=== PATIENT | female | born 1995 | race African-American/Black ===

== ENCOUNTER 2017-01-26 16:24 | Observation (INO) | payer OTHER ==
[2016-05-19 12:49] VITALS: BP 118/63
[2017-01-26] MEDS ORDERED: IV RINGERS,LACTATED 1000ML 1,000 ML IV SCH (17:03)
[2017-01-26 17:24] LABS: BILIRUBIN,URINE NEGATIVE (NEG); GLUCOSE,URINE NEGATIVE (NEG); NITRITE,URINE NEGATIVE (NEG); PROTEIN,URINE NEGATIVE (NEG-TRACE)
[2017-01-26 17:34] LABS: BACTERIA,URINE MODERATE /HPF (0-FEW); RBC,URINE 0 /HPF (0-2); SQUAMOUS EPITHELIAL CELL,UR MOD /LPF; TRICHOMONAS,URINE PRESENT
== END 2017-01-26 18:35 | disposition home or self-care (01) ==
LOC: 3 SO LND 16:24
PROVIDERS: ADMIT Obstetrics & Gynecology; ATTEND Obstetrics & Gynecology
DX: O26.893 Other specified pregnancy related conditions, third trimester (principal); R10.30 Lower abdominal pain, unspecified; M54.9 Dorsalgia, unspecified; Z3A.33 33 weeks gestation of pregnancy
CPT/HCPCS: 81001; 87086; G0378; G0379

== ENCOUNTER 2017-08-23 08:39 | Emergency (ER) | payer OTHER ==
[2017-08-23 08:58] LABS: URINE HCG POC HCG NEGATIVE (Negative)
[2017-08-23] MEDS: ONDANSETRON ODT 4 MG TAB.RAPDIS. PO (09:11)
== END 2017-08-23 09:18 | disposition home or self-care (01) ==
LOC: ER 09:18
DX: R11.2 Nausea with vomiting, unspecified (principal); R05 Cough; F12.10 Cannabis abuse, uncomplicated
CPT/HCPCS: 81025; 99282; Q0162

== ENCOUNTER 2018-02-01 16:57 | Emergency (ER) | payer OTHER ==
[~2018-02-01] VITALS: Ht 152.4 cm; Wt 93.0 kg
[2018-02-01 18:06] VITALS: BP 134/63
--- NOTE | 2018-02-01 18:15 | PHYS DOC ---
Past Medical History Past Medical History: No Pertinent History Past Surgical History: Alcohol Use: None Drug Use: Marijuana Adult General Chief Complaint Chief Complaint: ABDOMINAL PAIN HPI HPI Patient is a 22 year old female who presents by private vehicle with complaints of intermittent pelvic pain that is started today. She reports that the pain is sharp in nature and comes and goes. She denies any urinary symptoms , abnormal discharge, fever, constipation, diarrhea. LMP 01/24/2018. Review of Systems Review of Systems Constitutional: Denies fever or chills [] Eyes: Denies change in visual acuity, redness, or eye pain [] HENT: Denies nasal congestion or sore throat [] Respiratory: Denies cough or shortness of breath [] Cardiovascular: No additional information not addressed in HPI [] GI: Denies abdominal pain, nausea, vomiting, bloody stools or diarrhea [] : Denies dysuria or hematuria [] Musculoskeletal: Denies back pain or joint pain [] Integument: Denies rash or skin lesions [] Neurologic: Denies headache, focal weakness or sensory changes [] Endocrine: Denies polyuria or polydipsia [] All other systems were reviewed and found to be within normal limits, except as documented in this note. Allergies Allergies Allergies Coded Allergies Type Severity Reaction Last Updated Verified No Known Drug Allergies 07/04/15 No Physical Exam Physical Exam Constitutional: Well developed, well nourished, no acute distress, non-toxic appearance. [] HENT: Normocephalic, atraumatic, bilateral external ears normal, oropharynx moist, no oral exudates, nose normal. [] Eyes: PERRLA, EOMI, conjunctiva normal, no discharge. [] Neck: Normal range of motion, no tenderness, supple, no stridor. [] Cardiovascular:Heart rate regular rhythm, no murmur [] Lungs & Thorax: Bilateral breath sounds clear to auscultation [] Abdomen: Bowel sounds normal, soft, no tenderness, no masses, no pulsatile masses. [] Skin: Warm, dry, no erythema, no rash. [] Back: No tenderness, no CVA tenderness. [] Extremities: No tenderness, no cyanosis, no clubbing, ROM intact, no edema. [] Neurologic: Alert and oriented X 3, normal motor function, normal sensory function, no focal deficits noted. [] Psychologic: Affect normal, judgement normal, mood normal. [] Current Patient Data Vital Signs Vital Signs Date Time Temp Pulse Resp B/P (MAP) Pulse Ox O2 Delivery O2 Flow Rate FiO2 02/01/18 18:06 98.3 95 18 134/63 (86) 98 Room Air 98.3 Lab Values Laboratory Tests Test 02/01/18 17:55 02/01/18 18:10 POC Urine HCG, Qualitative Hcg negative (Negative) Urine Collection Type Unknown Urine Color Yellow Urine Clarity Clear Urine pH 6.0 Urine Specific [place] 1.020 Urine Protein Negative mg/dL (NEG-TRACE) Urine Glucose (UA) Negative mg/dL (NEG) Urine Ketones (Stick) Negative mg/dL (NEG) Urine Blood Negative (NEG) Urine Nitrite Negative (NEG) Urine Bilirubin Negative (NEG) Urine Urobilinogen Dipstick 0.2 mg/dL (0.2 mg/dL) Urine Leukocyte Esterase Negative (NEG) Urine RBC 0 /HPF (0-2) Urine WBC 1-4 /HPF (0-4) Urine Squamous Epithelial Cells Few /LPF Urine Bacteria 0 /HPF (0-FEW) Urine Mucus Mod /LPF Microbiology 02/01/18 Wet Prep - Final, Complete EKG EKG [] Radiology/Procedures Radiology/Procedures [] Course & Med Decision Making Course & Med Decision Making Pertinent Labs and Imaging studies reviewed. (See chart for details) [] Dragon Disclaimer Dragon Disclaimer This electronic medical record was generated, in whole or in part, using a voice recognition dictation system. Departure Departure Impression: Primary Impression: Bacterial vaginosis Disposition: HOME, SELF-CARE Condition: STABLE Referrals: SPARKLE WOO MD (PCP) Patient Instructions: Bacterial Vaginosis, [id number] Additional Instructions: Take all medication as directed. NO alcohol while taking this medication for 48 hours after completion of medication. Follow-up with primary doctor in 1-2 days. Return immediately with any problems or concerns. Scripts Metronidazole (FLAGYL) 500 Mg Tablet 1 TAB PO BID, #14 TAB Prov: NATALIE MORALES APRN 02/01/18 NATALIE MORALES APRN Feb 01, 2018 18:15
[2018-02-01 18:24] LABS: BILIRUBIN,URINE NEGATIVE (NEG); CLARITY,URINE CLEAR; COLOR,URINE YELLOW; NITRITE,URINE NEGATIVE (NEG); PROTEIN,URINE NEGATIVE (NEG-TRACE); UROBILINOGEN,URINE 0.2 mg/dL (0.2 mg/dL)
[2018-02-01 18:47] LABS: BACTERIA,URINE 0 /HPF (0-FEW); RBC,URINE 0 /HPF (0-2); SQUAMOUS EPITHELIAL CELL,UR FEW /LPF
[2018-02-01] MEDS ORDERED: METR500T PO (20:07)
[2018-02-01] MEDS ORDERED: cefTRIAXone IM 250 MG VIAL IM ONE (20:15)
[2018-02-01] MEDS ORDERED: AZITHROMYCIN 250 MG TABLET. PO ONE (20:15)
[2018-02-03 15:37] LABS: GC PROBE Negative (Negative)
== END 2018-02-01 20:28 | disposition home or self-care (01) ==
LOC: ER 16:57
DX: N76.0 Acute vaginitis (principal); B96.89 Other specified bacterial agents as the cause of diseases classified elsewhere; Z98.890 Other specified postprocedural states
CPT/HCPCS: 81001; 81025; 87491; 87591; 96372; 99284; J0696; Q0111; Q0144

== ENCOUNTER 2018-04-18 10:12 | Emergency (ER) | payer OTHER ==
[~2018-04-18] VITALS: Ht 152.4 cm; Wt 86.2 kg
[~2018-04-18 10:12] MED LIST: METR500T PO
[2018-04-18] MEDS ORDERED: cefTRIAXone IM 250 MG VIAL IM ONE (10:30)
[2018-04-18] MEDS ORDERED: AZITHROMYCIN 250 MG TABLET. PO ONE (10:30)
[2018-04-18 10:37] VITALS: BP 118/56
[2018-04-18 10:44] LABS: BILIRUBIN,URINE NEGATIVE (NEG); CLARITY,URINE CLEAR; COLOR,URINE YELLOW; NITRITE,URINE NEGATIVE (NEG); PROTEIN,URINE NEGATIVE (NEG-TRACE); UROBILINOGEN,URINE 0.2 mg/dL (0.2 mg/dL)
[2018-04-18 10:54] LABS: BACTERIA,URINE 0 /HPF (0-FEW); RBC,URINE RARE /HPF (0-2); SQUAMOUS EPITHELIAL CELL,UR FEW /LPF; WBC,URINE RARE /HPF (0-4)
--- NOTE | 2018-04-18 10:55 | PHYS DOC ---
Past Medical History Past Medical History: No Pertinent History Past Surgical History: Alcohol Use: None Drug Use: Marijuana Adult General Chief Complaint Chief Complaint: SEXUALLY TRANSMITTED DISEASE HPI HPI Patient is a 22 year old female who presents with states she was be checked for STDs. Patient states she has 2 small bumps that are painful on her vagina that she saw about 2 days ago. She denies any vaginal discharge or bleeding. She would like to be treated prophylactically for any STDs. Her only past medical history is a . Patient has no known drug allergies. Review of Systems Review of Systems Constitutional: Denies fever or chills [] Eyes: Denies change in visual acuity, redness, or eye pain [] HENT: Denies nasal congestion or sore throat [] Respiratory: Denies cough or shortness of breath [] Cardiovascular: No additional information not addressed in HPI [] GI: Denies abdominal pain, nausea, vomiting, bloody stools or diarrhea [] : Denies dysuria or hematuria [] Musculoskeletal: Denies back pain or joint pain [] Integument: 2 painful ingrown hairs to vagina. Denies rash or skin lesions [] Neurologic: Denies headache, focal weakness or sensory changes [] Endocrine: Denies polyuria or polydipsia [] All other systems were reviewed and found to be within normal limits, except as documented in this note. Current Medications Current Medications Current Medications Medications (Trade) Dose Ordered Sig/Rosie Start Time Stop Time Status Last Admin Dose Admin Azithromycin (Zithromax) 1,000 mg 1X ONCE 04/18/18 10:30 04/18/18 10:31 DC 04/18/18 10:58 1,000 MG Ceftriaxone Sodium (Rocephin Im) 250 mg 1X ONCE 04/18/18 10:30 04/18/18 10:31 DC 04/18/18 10:59 250 MG Allergies Allergies Allergies Coded Allergies Type Severity Reaction Last Updated Verified No Known Drug Allergies 07/04/15 No Physical Exam Physical Exam Constitutional: Well developed, well nourished, no acute distress, non-toxic appearance. [] HENT: Normocephalic, atraumatic, bilateral external ears normal, oropharynx moist, no oral exudates, nose normal. [] Eyes: PERRLA, EOMI, conjunctiva normal, no discharge. [] Neck: Normal range of motion, no tenderness, supple, no stridor. [] Cardiovascular:Heart rate regular rhythm, no murmur [] Lungs & Thorax: Bilateral breath sounds clear to auscultation [] Abdomen: Bowel sounds normal, soft, no tenderness, no masses, no pulsatile masses. [] Skin: Two nondraining reddened ingrown hairs to the vagina. Warm, dry, no erythema, no rash. [] Back: No tenderness, no CVA tenderness. [] Extremities: No tenderness, no cyanosis, no clubbing, ROM intact, no edema. [] Neurologic: Alert and oriented X 3, normal motor function, normal sensory function, no focal deficits noted. [] Psychologic: Affect normal, judgement normal, mood normal. [] Current Patient Data Vital Signs Vital Signs Date Time Temp Pulse Resp B/P (MAP) Pulse Ox O2 Delivery O2 Flow Rate FiO2 04/18/18 10:37 98.2 85 16 118/56 (76) 100 Room Air 98.2 Lab Values Laboratory Tests Test 04/18/18 10:25 04/18/18 10:30 Urine Collection Type Unknown Urine Color Yellow Urine Clarity Clear Urine pH 7.0 Urine Specific [place] 1.015 Urine Protein Negative mg/dL (NEG-TRACE) Urine Glucose (UA) Negative mg/dL (NEG) Urine Ketones (Stick) Negative mg/dL (NEG) Urine Blood Negative (NEG) Urine Nitrite Negative (NEG) Urine Bilirubin Negative (NEG) Urine Urobilinogen Dipstick 0.2 mg/dL (0.2 mg/dL) Urine Leukocyte Esterase Trace (NEG) Urine RBC Rare /HPF (0-2) Urine WBC Rare /HPF (0-4) Urine Squamous Epithelial Cells Few /LPF Urine Bacteria 0 /HPF (0-FEW) POC Urine HCG, Qualitative Hcg negative (Negative) Microbiology 04/18/18 Wet Prep - Final, Complete EKG EKG [] Radiology/Procedures Radiology/Procedures [] Course & Med Decision Making Course & Med Decision Making Patient is a 22 year old female who presents with states she was be checked for STDs. Patient states she has 2 small bumps that are painful on her vagina that she saw about 2 days ago. She denies any vaginal discharge or bleeding. She would like to be treated prophylactically for any STDs. Her only past medical history is a . Patient has no known drug allergies. Alert and oriented. Abdomen is soft and nontender. Patient denies any nausea, abdominal pain, ring, diarrhea, vaginal discharge, vaginal bleeding. Denies any fevers. Pelvic exam was done and STD cultures and wet mount are sent to lab. Patient is treated prophylactically with azithromycin and Rocephin in the ED. She is told that if her results come back positive we'll call here in 48 hours. Urine shows no infection. Wet mount shows no acute findings. Patient is sent home with Keflex for her to small reddened painful ingrown hairs on the top of the vagina and on the bottom of the right labia. Pelvic Exam: Finish Production Manager present Abdomen: Nontender External Genitalia: Normal Skin Speculum: Normal vaginal mucosa, white cervical discharge Bimanual: No adnexal masses or tenderness, No CMT Dragon Disclaimer Dragon Disclaimer This electronic medical record was generated, in whole or in part, using a voice recognition dictation system. Departure Departure Impression: Primary Impression: Sexually transmitted disease Additional Impression: Ingrown hair Disposition: 01 HOME, SELF-CARE Condition: STABLE Referrals: SPARKLE WOO MD (PCP) Patient Instructions: Ingrown Hair, Sexually Transmitted Disease Additional Instructions: Follow-up with her primary care if needed. Tell any partners if you come back positive with STDs, that they need to get treated. Scripts Cephalexin (KEFLEX) 500 Mg Capsule 1 CAP PO BID, #10 CAP Prov: ZEYAD LIU APRN 04/18/18 Problem Qualifiers ZEYAD LIU APRN Apr 18, 2018 10:55
[2018-04-18] MEDS ORDERED: CEPH-264 PO (11:26)
[2018-04-20 13:17] LABS: GC PROBE Positive (Negative)
== END 2018-04-18 11:37 | disposition home or self-care (01) ==
LOC: ER 10:12
DX: A64 Unspecified sexually transmitted disease (principal); L73.1 Pseudofolliculitis barbae
CPT/HCPCS: 81001; 81025; 87491; 87591; 96372; 99283; J0696; Q0111; Q0144

== ENCOUNTER 2018-10-31 17:35 | Emergency (ER) | payer OTHER ==
[~2018-10-31] VITALS: Ht 152.4 cm; Wt 86.2 kg
[~2018-10-31 17:35] MED LIST changes: +CEPH-264 PO
[2018-10-31 18:25] VITALS: BP 142/70
--- NOTE | 2018-10-31 19:51 | PHYS DOC ---
Past Medical History Past Medical History: No Pertinent History (RONAN WHITMORE APRN) Past Surgical History: (RONAN WHITMORE APRN) Alcohol Use: None Drug Use: Marijuana (RONAN WHITMORE APRN) Adult General Chief Complaint Chief Complaint: VAGINAL BLEEDING HPI HPI Patient is a 23 year old AA female who presents to the ER with complaints of vaginal bleeding since 1800 last night and pelvic cramps during . Pt states her LMP was at the end of August and that she is almost 6 weeks of gestation. She has an appointment with her OB next week on the . She reports that the bleeding has been intermittent, is light so far and is only present with wiping. She denies any dysuria or CVA tenderness. She is 2, para 1. She reports low back pain, she was given a EDC of 06/19/19. She currently rates her pain a 6/10 and describes it as cramping. (RONAN WHITMORE APRN) Review of Systems Review of Systems Constitutional: Denies fever or chills [] \HENT: Denies nasal congestion or sore throat [] Respiratory: Denies cough or shortness of breath [] Cardiovascular: No additional information not addressed in HPI [] GI: Denies nausea, or vomiting; see HPI : Denies dysuria; see HPI Musculoskeletal: See HPI Integument: Denies rash or skin lesions [] Neurologic: Denies headache Complete systems were reviewed and found to be within normal limits, except as documented in this note. (RONAN WHITMORE APRN) Allergies Allergies Allergies Coded Allergies Type Severity Reaction Last Updated Verified No Known Drug Allergies 07/04/15 No (VIPIN JASSO DO) Physical Exam Physical Exam Constitutional: Well developed, well nourished, no acute distress, non-toxic appearance, obese. [] HENT: Normocephalic, atraumatic, bilateral external ears normal, nose normal. [] Eyes: PERRLA, EOMI, conjunctiva normal, no discharge. [] Neck: Normal range of motion, no tenderness, supple, no stridor. [] Cardiovascular:Heart rate regular rhythm Lungs & Thorax: Bilateral breath sounds clear to auscultation [] Pelvic Exam: Tax Expert present Angie RN Abdomen: Nontender, soft External Genitalia: Normal Skin Speculum: Normal vaginal mucosa, bloody cervical discharge Bimanual: declined by patient Skin: Warm, dry, no erythema, no rash. [] Back: No tenderness, no CVA tenderness. [] Extremities: No cyanosis, ROM intact, no edema. [] Neurologic: Alert and oriented X 3, no focal deficits noted. [] Psychologic: Affect normal, judgement normal, mood normal. [] (RONAN HWITMORE APRN) Physical Exam Constitutional: Well developed, well nourished, no acute distress, anxious and irritated HENT: Normocephalic, atraumatic Eyes: Conjunctiva normal, no discharge Neck: Normal range of motion, supple Lungs & Thorax: No respiratory distress Neurologic: Alert and oriented, speech normal, no focal deficits noted Psychologic: Affect irritable, judgement normal (VIPIN JASSO DO) Current Patient Data Vital Signs Vital Signs Date Time Temp Pulse Resp B/P (MAP) Pulse Ox O2 Delivery O2 Flow Rate FiO2 10/31/18 18:25 99.7 81 20 142/70 (94) 99 Room Air 99.7 (VIPIN JASSO DO) Lab Values Laboratory Tests Test 10/31/18 18:30 10/31/18 18:38 10/31/18 20:10 Urine Collection Type Unknown Urine Color Yellow Urine Clarity Clear Urine pH 6.5 Urine Specific [place] 1.020 Urine Protein Negative mg/dL (NEG-TRACE) Urine Glucose (UA) Negative mg/dL (NEG) Urine Ketones (Stick) Negative mg/dL (NEG) Urine Blood Large (NEG) Urine Nitrite Negative (NEG) Urine Bilirubin Negative (NEG) Urine Urobilinogen Dipstick 1.0 mg/dL (0.2 mg/dL) Urine Leukocyte Esterase Small (NEG) Urine RBC >40 /HPF (0-2) Urine WBC 5-10 /HPF (0-4) Urine Squamous Epithelial Cells Few /LPF Urine Bacteria Few /HPF (0-FEW) POC Urine HCG, Qualitative Hcg positive (Negative) Maternal Serum HCG Beta Subunit 8567 mIU/mL (0-5) H (VIPIN JASSO DO) EKG EKG [] (RONAN WHITMORE APRN) Radiology/Procedures Radiology/Procedures 1941-pelvic exam, unable to visualize cervix due to blood in vaginal vault, pt not tolerating pelvic exam due to pain, bimanual exam declined. [] PROCEDURE: OB <14 WKS W/TV EXAM: OBSTETRIC ULTRASOUND <14 WEEKS. HISTORY: Vaginal bleeding and cramping in early . FINDINGS: Sonographic evaluation of the pelvis was performed transabdominally and transvaginally. The uterus is anteverted and measures 9.3 x 4.9 x 4.8 cm. No intrauterine gestation is identified. The endometrial stripe measures 9 mm along the fundus, but 12 mm along the proximal cervix/lower uterine segment. This portion contains some heterogeneous soft tissue echogenicity with some questionable internal perfusion. There is no clear endometrial fluid. The right ovary measures 2.8 x 2.3 x 1.8 cm. The left ovary measures 4.1 x 3.8 x 3.4 cm. It contains a simple appearing dominant follicle or small cyst that measures 3.5 x 2.8 cm. There are no suspicious lesions. There is normal flow bilaterally. There is no adnexal mass suggestive of ectopic gestation. There is no significant free fluid. IMPRESSION: 1. No viable intrauterine gestation is identified. Some heterogeneous soft tissue within the lower uterine segment or proximal cervix may represent products of conception undergoing expulsion. Correlate with quantitative beta hCG to further confirm this. Follow-up to quantitative beta hCG zero is recommended. (RONAN WHITMORE APRN) Course & Med Decision Making Course & Med Decision Making Pertinent Labs and Imaging studies reviewed. (See chart for details) dx: Complete Miscarriage Pt is Rh positive. Hcg level 8567. UA unremarkable. US IMPRESSION: 1. No viable intrauterine gestation is identified. Some heterogeneous soft tissue within the lower uterine segment or proximal cervix may represent products of conception undergoing expulsion. Correlate with quantitative beta hCG to further confirm this. Follow-up to quantitative beta hCG zero is recommended. Pt instructed to follow up with OBGyn on 11/03 as scheduled. Return to ER if sx worsen. Patient verbalized an understanding of home care, medications, follow-up, and return to ED instructions and was in agreement with the plan of care. [] (RONAN WHITMORE APRN) Dragon Disclaimer Dragon Disclaimer This electronic medical record was generated, in whole or in part, using a voice recognition dictation system. (RONAN WHITMORE APRN) Departure Departure Impression: Primary Impression: Complete miscarriage Disposition: HOME, SELF-CARE Condition: STABLE Referrals: UNKNOWN PCP NAME (PCP) Patient Instructions: Miscarriage, [id number] Additional Instructions: Your HCG level today was 8567. Take tylenol as needed for pain. Follow up with your OBGyn on the as scheduled, return to the ER if your symptoms worsen. Attending Signature Attending Signature I have personally interviewed and examined the patient. All charts, labs, and imaging studies were reviewed. I agree with the PA/SUMMER SESSIONS DIRECTOR's findings, exam, and plan. (VIPIN JASSO DO) RONAN WHITMORE APRN Oct 31, 2018 19:50 VIPIN JASSO DO Nov 01, 2018 04:52
[2018-10-31 20:40] LABS: BILIRUBIN,URINE NEGATIVE (NEG); CLARITY,URINE CLEAR; COLOR,URINE YELLOW; NITRITE,URINE NEGATIVE (NEG); PH,URINE 6.5; PROTEIN,URINE NEGATIVE (NEG-TRACE)
[2018-10-31 20:56] LABS: BACTERIA,URINE FEW /HPF (0-FEW); RBC,URINE >40 /HPF (0-2); SQUAMOUS EPITHELIAL CELL,UR FEW /LPF
--- NOTE | 2018-10-31 21:33 | RAD ---
EXAM: OBSTETRIC ULTRASOUND <14 WEEKS. HISTORY: Vaginal bleeding and cramping in early . FINDINGS: Sonographic evaluation of the pelvis was performed transabdominally and transvaginally. The uterus is anteverted and measures 9.3 x 4.9 x 4.8 cm. No intrauterine gestation is identified. The endometrial stripe measures 9 mm along the fundus, but 12 mm along the proximal cervix/lower uterine segment. This portion contains some heterogeneous soft tissue echogenicity with some questionable internal perfusion. There is no clear endometrial fluid. The right ovary measures 2.8 x 2.3 x 1.8 cm. The left ovary measures 4.1 x 3.8 x 3.4 cm. It contains a simple appearing dominant follicle or small cyst that measures 3.5 x 2.8 cm. There are no suspicious lesions. There is normal flow bilaterally. There is no adnexal mass suggestive of ectopic gestation. There is no significant free fluid. IMPRESSION: 1. No viable intrauterine gestation is identified. Some heterogeneous soft tissue within the lower uterine segment or proximal cervix may represent products of conception undergoing expulsion. Correlate with quantitative beta hCG to further confirm this. Follow-up to quantitative beta hCG zero is recommended. Electronically signed by: Crystal Brothers MD (10/31/2018 9:31 PM) [facility]
--- NOTE | 2018-11-03 21:06 | PATHOLOGY ---
[facility] Accession Number: [id number] . 01 Material submitted: . product of conception - TISSUE EXPELLED FROM CERVIX . 01 Clinical history: . LMP Ended August . 02 Diagnosis: "Tissue expelled from cervix": - Decidualized secretory endometrium with focal acute inflammation and degenerative changes. - No chorionic villi seen. . (SKM:mml; 11/03/2018) QL/11/03/2018 . 02 Electronically signed: . Luis Jacinto MD, Pathologist NPI- [id number] . 01 Gross description: . The specimen is received in formalin, labeled "Leslie Brown, tissue expelled from cervix", is a disrupted gordon-white, rubbery sac measuring 4.5 x 1.5 x 0.5 cm. Sectioning shows the sac, partially filled with dark brown hemorrhagic material and no discrete spongy placental tissue, parts or grapelike cystic structures. The specimen is entirely submitted in A1-A3. ([facility]; 11/02/2018) [facility] . 02 Pathologist provided ICD-10: N93.9 . 02 CPT . 402381 Specimen Comment: A courtesy copy of this report has been sent to Specimen Comment: [phone]. Specimen Comment: Report sent to Performed at: 01 [facility] [address], [place] [id number] MD Kartik Painting MD Phone: [phone] Performed at: 02 [facility] [address] [place], [place] [id number] MD Andrey Calle MD Phone: [phone]
== END 2018-10-31 21:32 | disposition home or self-care (01) ==
LOC: ER 17:35
DX: O03.9 Complete or unspecified spontaneous abortion without complication (principal); Z3A.01 Less than 8 weeks gestation of pregnancy
CPT/HCPCS: 36415; 76801; 76817; 81001; 81025; 84702; 86900; 86901; 87086; 99285-25

== ENCOUNTER 2019-05-08 11:56 | Emergency (ER) | payer OTHER ==
[~2019-05-08] VITALS: Ht 152.4 cm; Wt 87.7 kg
[2019-05-08 11:58] VITALS: BP 146/79
[2019-05-08] MEDS ORDERED: ONDA4TAB7 PO (13:26)
--- NOTE | 2019-05-08 13:27 | PHYS DOC ---
Past Medical History Past Medical History: No Pertinent History Past Surgical History: Alcohol Use: None Drug Use: Marijuana Adult General Chief Complaint Chief Complaint: nausea and vomiting and diarrhea HPI HPI Patient is a 23 year old male patient without medical problem complaining of nausea and vomiting and diarrhea. Patient states since yesterday she had 4 episodes of vomiting and was not able to eat and drink anything. Patient states this morning and appointment was able to tolerate Lyn salad. Patient denies sick contacts and states she feels better right now. Review of Systems Review of Systems Constitutional: Denies fever or chills [] Eyes: Denies change in visual acuity, redness, or eye pain [] HENT: Denies nasal congestion or sore throat [] Respiratory: Denies cough or shortness of breath [] Cardiovascular: No additional information not addressed in HPI [] GI: Denies abdominal pain, reports nausea, vomiting, diarrhea [] : Denies dysuria or hematuria [] Musculoskeletal: Denies back pain or joint pain [] Integument: Denies rash or skin lesions [] Neurologic: Denies headache, focal weakness or sensory changes [] Endocrine: Denies polyuria or polydipsia [] All other systems were reviewed and found to be within normal limits, except as documented in this note. Allergies Allergies Allergies Coded Allergies Type Severity Reaction Last Updated Verified No Known Drug Allergies 07/04/15 No Physical Exam Physical Exam Constitutional: Well developed, well nourished, no acute distress, non-toxic appearance. [] HENT: Normocephalic, atraumatic, oropharynx moist. Eyes: PERRLA, EOMI, conjunctiva normal, no discharge. [] Neck: Normal range of motion, no tenderness, supple, no stridor. [] Cardiovascular:Heart rate regular rhythm, no murmur [] Lungs & Thorax: Bilateral breath sounds clear to auscultation [] Abdomen: Bowel sounds normal, soft, no tenderness, no masses, no pulsatile masses. [] Skin: Warm, dry, no erythema, no rash. [] Back: No tenderness, no CVA tenderness. [] Extremities: No tenderness, no cyanosis, no clubbing, ROM intact, no edema. [] Neurologic: Alert and oriented X 3, normal motor function, normal sensory function, no focal deficits noted. [] Psychologic: Affect normal, judgement normal, mood normal. [] Current Patient Data Vital Signs Vital Signs Date Time Temp Pulse Resp B/P (MAP) Pulse Ox O2 Delivery O2 Flow Rate FiO2 05/08/19 11:58 98.3 89 17 146/79 (101) 98 Room Air 98.3 EKG EKG [] Radiology/Procedures Radiology/Procedures [] Course & Med Decision Making Course & Med Decision Making Evaluation of patient in ER showed 32-year-old male patient brought her to others with flulike symptom and ORIENTED stated because and diarrhea since yesterday. Patient had unremarkable physical exam.discharge: I've spoken with the patient and/or caregivers. I've explained the patient's condition, diagnosis and treatment plan based on information available to me at this time. I've answered the patient's and/or caregivers questions and addressed any concerns. The patient and/or caregivers have a good understanding the patient's diagnosis, condition and treatment plan as can be expected at this point. Vital signs have been stabilized. The patient's condition is stable for d ischarge from the emergency department. The patient will pursue further outpatient evaluation with her primary care provider or other designated consulting physician as outlined in the discharge instructions. Patient and/or caregivers are agreeable to this plan of care and follow-up instructions have been explained in detail. The patient and/or caregivers have received these instructions in written format and expressed understanding of these discharge instructions. The patient and her caregivers are aware that if any significant change in condition or worsening of symptoms should prompt him to immediately return to this of the closest emergency department. If an emergent department is not readily available I would encourage him to call 911. Damon Disclaimer Brigidaon Disclaimer This electronic medical record was generated, in whole or in part, using a voice recognition dictation system. Departure Departure Impression: Primary Impression: Viral gastroenteritis Disposition: HOME, SELF-CARE (1325) Condition: STABLE Referrals: UNKNOWN PCP NAME (PCP) Patient Instructions: Viral Gastroenteritis Additional Instructions: Drink plenty of liquids Follow-up with your primary care physician in 3-5 days Return to ER if not getting better Thank you for visiting [facility]. We appreciate you trusting us with your care. If any additional problems come up don't hesitate to return to visit us. Please follow up with your primary care provider so they can plan additional care if needed and know about the problem that you had. If symptoms worsen come back to the Emergency Department. Any concerning symptoms that start such as chest pain, shortness of air, weakness or numbness on one side of the body, running high fevers or any other concerning symptoms return to the ER. Scripts Ondansetron Hcl (ZOFRAN) 4 Mg Tablet 1 TAB PO PRN Q6-8HRS for nausea, #12 TAB Prov: EWS IRWIN MD 05/08/19 WES IRWIN MD May 08, 2019 13:27
== END 2019-05-08 13:48 | disposition home or self-care (01) ==
LOC: ER 11:56
DX: A08.4 Viral intestinal infection, unspecified (principal)
CPT/HCPCS: 99283

== ENCOUNTER 2020-03-26 20:54 | Emergency (ER) | payer OTHER ==
[~2020-03-26] VITALS: Ht 152.4 cm; Wt 90.9 kg
[~2020-03-26 20:54] MED LIST changes: +ONDA4TAB7 PO
[2020-03-26 21:06] VITALS: BP 143/74
--- NOTE | 2020-03-26 21:08 | PHYS DOC ---
Past Medical History Past Medical History: No Pertinent History (COBY CAMPOS APRN) Past Surgical History: (COBY CAMPOS APRN) Smoking Status: Never Smoker Alcohol Use: None Drug Use: Marijuana (COBY CAMPOS APRN) General Adult EDM: Chief Complaint: TEST HPI: HPI: Patient is a 24 year old female who presents to the ED today complaining of nausea and vomiting today and requesting a test. She states she did a home test which was positive. Her last menstrual cycle was February 20, 2020. She is a 3 para 1 with 1 miscarriage. Denies any abdominal pain. Denies any vaginal bleeding. (COBY CAMPOS APRN) Review of Systems: Review of Systems: Constitutional: Denies fever or chills. [] GI: Request for test. Reports nausea and vomiting. Denies abdominal pain, bloody stools or diarrhea. [] : Denies dysuria. [] Musculoskeletal: Denies back pain or joint pain. [] Integument: Denies rash. [] Neurologic: Denies headache, focal weakness or sensory changes. [] Psychiatric: Denies depression or anxiety. [] (COBY CAMPOS APRN) Heart Score: Risk Factors: Risk Factors: DM, Current or recent (<one month) smoker, HTN, HLP, family history of CAD, obesity. Risk Scores: Score 0 - 3: 2.5% MACE over next 6 weeks - Discharge Home Score 4 - 6: 20.3% MACE over next 6 weeks - Admit for Clinical Observation Score 7 - 10: 72.7% MACE over next 6 weeks - Early Invasive Strategies (COBY CAMPOS APRN) Allergies: Allergies: Allergies Coded Allergies Type Severity Reaction Last Updated Verified No Known Drug Allergies 07/04/15 No (COBY CAMPOS APRN) Physical Exam: PE: Constitutional: Well developed, well nourished, no acute distress, non-toxic appearance. [] Abdomen: Bowel sounds normal, soft, no tenderness, no masses, no pulsatile masses. [] Skin: Warm, dry, no erythema, no rash. [] Back: No tenderness, no CVA tenderness. [] Extremities: No tenderness, no cyanosis, no clubbing, ROM intact, no edema. [] Neurologic: Alert and oriented X 3, normal motor function, normal sensory function, no focal deficits noted. [] Psychologic: Affect normal, judgement normal, mood normal. [] (COBY CAMPOS APRN) Current Patient Data: Labs: Laboratory Tests Test 03/26/20 21:02 POC Urine HCG, Qualitative Hcg positive (Negative) (COBY CAMPOS APRN) EKG: EKG: [] (COBY CAMPOS APRN) Radiology/Procedures: Radiology/Procedures: [] (COBY CAMPOS APRN) Course & Med Decision Making: Course & Med Decision Making Pertinent Labs and Imaging studies reviewed. (See chart for details) This is a 24-year-old female patient presenting to the ED today requesting a test. Her last menstrual cycle was February 20, 2020. She is a 3 para 1 with 1 miscarriage. Has had nausea and vomiting all day today. She is in no distress currently talking on the phone. She did a home test which was positive. She would like confirmation of her . Positive urine hCG. Discharged home with Compazine and provided instructions to follow- up with an SECURITY AUDITOR. vitamins recommended. (COBY CAMPOS APRN) Course & Med Decision Making I have reviewed the PA/DOG TRACK KENNEL MANAGER's note and Plan of Care. I was available for consultation as needed during the patient's visit in the emergency department. I agree with the clinical impression, plans and disposition. (BECKY SARGENT MD) Dragon Disclaimer: Dragon Disclaimer: This electronic medical record was generated, in whole or in part, using a voice recognition dictation system. (COBY CAMPOS APRN) Departure Departure Impression: Primary Impression: Nausea and vomiting during Additional Impression: Qualified Codes: Z3A.01 - Less than 8 weeks gestation of Disposition: DC HOME SELF CARE/HOMELESS Condition: STABLE Referrals: UNKNOWN PCP NAME (PCP) VIPIN MARTINEZ MD follow up in 1 week Patient Instructions: ABCs of , Diet - Hyperemesis Gravidarum, Hyperemesis Gravidarum Additional Instructions: Congratulations you are . Please establish care with an SECURITY AUDITOR. Start taking vitamins. Take nausea medicine as needed. Come back to the ED at any point you have concerning symptoms Scripts Prochlorperazine Maleate (Compazine) 10 Mg Tablet 1 TAB PO Q6HRS, #30 TAB 0 Refills Prov: MUTUNGA,COBY SKEIN YARN DRIER 03/26/20 COBY CAMPOS APRN Mar 26, 2020 21:08 BECKY SARGENT MD Mar 27, 2020 01:22
[2020-03-26] MEDS ORDERED: PROC10TA57 PO (21:40)
== END 2020-03-26 21:58 | disposition home or self-care (01) ==
LOC: ER 20:54
DX: O21.9 Vomiting of pregnancy, unspecified (principal); Z3A.01 Less than 8 weeks gestation of pregnancy
CPT/HCPCS: 81025; 99282

== ENCOUNTER 2020-04-10 10:11 | Emergency (ER) | payer OTHER ==
[~2020-04-10] VITALS: Ht 152.4 cm; Wt 45.0 kg
[~2020-04-10 10:11] MED LIST changes: +PROC10TA57 PO
[2020-04-10 10:45] VITALS: BP 149/70
== END 2020-04-10 11:02 | disposition left against medical advice (07) ==
LOC: ER 10:11
DX: O26.891 Other specified pregnancy related conditions, first trimester (principal); R10.9 Unspecified abdominal pain; Z53.21 Procedure and treatment not carried out due to patient leaving prior to being seen by health care provider
CPT/HCPCS: 81025